=== PATIENT | male | born 1990 | race Caucasian/White ===

== ENCOUNTER → 2021-10-09 09:58 | Outpatient (CLI) | payer BC, SELFPAY ==
--- NOTE | 2021-10-10 12:10 | PC.NURSE ---
notified pt of positive COVID results at this time
--- NOTE | 2021-10-15 10:21 | PC.NURSE ---
Addendum entered by Lin Patel RN 10/15/21 10:21: Pharmacy notified of refusal Original Note: Pt states that he does not want to get the infusion when called to schedule. States he feels fine
== END ==
PROVIDERS: PCP Nurse Practitioner Family; Visit Provider Nurse Practitioner Family
DX: U07.1 COVID-19 (principal)
CPT/HCPCS: C9803; U0003; U0005

== ENCOUNTER 2022-02-27 13:10 | Emergency (ER) | payer BC, SELFPAY ==
[2022-02-27 13:27] VITALS: BP 151/99; PULSE 91; RESP 19; TEMP 36.7; O2SAT 98; BMI 51.2
--- NOTE | 2022-02-27 13:47 | HMH.EDUTC ---
[facility] [place] Disposition Clinical Impression: URI (upper respiratory infection) Qualifiers: URI type: unspecified URI Qualified Code(s): J06.9 - Acute upper respiratory infection, unspecified Disposition: Home, Self-Care Condition on Discharge: Good Instructions: Sore Throat, DI for Ear Pain-Adult, Azithromycin Additional Instructions: *Monitor Temp, Over the counter Motrin or Tylenol as directed/as needed Tylenol every 4 hours and Motrin every 6 hours (as long as your family doctor has told you that you can take it) for fever or pain. and straight to ER if unable to lower temp less than 101.0 after medication given *Warm salt water gargles may help to soothe the throat *Throat Lozenges *Warm fluids like tea with honey may help to soothe the throat *Sleep elevated *Humidifier/Vaporizer Your throat swab was sent for culture. Those results are typically sent to your primary care. Be sure to follow up in 2-3 days with your family doctor/primary care physician if no improvement so they can review those result and treat if necessary. If you don?t have a primary care doctor, I recommend you get one but in the mean time, you will have to return to a walk in clinic Follow up IMMEDIATELY for new or worsening symptoms or no Noticeable improvement over the next 48-72 hours. 911 for difficulty breathing or swallowing Prescriptions: Azithromycin [Z-Wild 250mg Tab] 250 mg PO DIRECTED #6 tab Transmission Status: Pending to [id number] Referrals: Kwaku Phan MD [Primary Care Provider] - As needed Forms: Work/School Release Time of Disposition: 14:44 Medical Decision Making - Kirill Inquiry Pt receiving controlled substance: No Kirill was queried for this patient: No Vital Signs: 02/27/22 13:27 Temperature 98.0 F Temperature Source Oral Pulse Rate [Right Radial] 91 H Respiratory Rate 19 Blood Pressure [Right Arm] 151/99 H Blood Pressure Mean [Right Arm] 116 Blood Pressure Source [Right Arm] Automatic Cuff Blood Pressure Position [Right Arm] Sitting 02 Sat by Pulse Oximetry 98 Oxygen Delivery Method Room Air - Lab Data Lab results reviewed: Yes: I reviewed the patient's lab results. Lab Results 02/27/22 13:59: Group A Strep Rapid Negative Orders (Tests/Meds): ORDERS Category Date Time Status Strep Screen Confirmation Stat Micro 02/27/22 13:59 Received Medical Decision Narrative: Patient states that he has taken azithromycin in the past without complications or reactions [facility] [place] HPI - General Stated complaint: rt ear pain, sore throat, cough, congestion Time Seen by Provider: 02/27/22 13:47 Mode of Arrival: Ambulatory Source of Information: Patient Limitations: No Limitations Description of Symptoms (Recalled from Triage Doc. by RN): C/O rt ear pain and sinus congestion since this morning HEENT Symptoms (Recalled from RN notes): Yes (Rt ear pain and sinus congestion) Resp Symptoms (Recalled from RN notes): No Skin Symptoms (Recalled from RN notes): No MS Symptoms (Recalled from RN notes): No Functional Status (Recalled from RN notes): n/a - History of Present Illness Provider Complaint: Patient states that he has been having sore scratchy throat, pain in his right ear and sinus congestion States that this morning he noticed looked like he may have blisters in the back of his throat so he came in to get it checked out - Related Data Previous Rx's Medication Instructions Recorded Azithromycin [Z-Wild 250mg Tab] 250 mg PO DIRECTED #6 tab 02/27/22 Allergies Allergy/AdvReac Type Severity Reaction Status Date / Time Penicillins Allergy Verified 02/27/22 13:29 - Worker's Comp Is this a Worker's Comp case?: No [facility] History - Hepatitis A Screen Drug use history?: No High risk sexual behaviors?: No History of sexually transmitted infection?: No Currently employed?: No Childcare worker?: No Do you have indoor plumbing?: Yes Do you have electricity?: Yes Attestat
[2022-02-27 14:21] LABS: Strep Scrn Group A (Rapid) Negative (Negative)
[2022-02-27 14:51] VITALS: BP 151/99; PULSE 91; RESP 19; TEMP 36.7; O2SAT 98
== END 2022-02-27 14:52 | disposition home or self-care (01) ==
PROVIDERS: Emergency Provider Nurse Practitioner; PCP Internal Medicine Adolescent Medicine
DX: J06.9 Acute upper respiratory infection, unspecified (principal)
CPT/HCPCS: 87430; 99212; G0463

== ENCOUNTER 2022-11-11 15:50 | Emergency (ER) | payer BC, SELFPAY ==
[2022-11-11 17:25] VITALS: BP 151/93; PULSE 86; RESP 18; TEMP 36.8; O2SAT 98; BMI 49.5
[2022-11-11 17:38] LABS: UTC Influenza A Antigen Positive (Negative)
[2022-11-11 17:39] LABS: UTC Influenza B Antigen Negative (Negative)
--- NOTE | 2022-11-11 18:14 | EXP.UTC ---
Discharge Plan Disposition Patient Disposition: Home, Self-Care Condition: Good Prescriptions Prescriptions: New oseltamivir [Tamiflu] 75 mg capsule 75 mg PO Q12H 5 Days Qty: 10 0RF No Action azithromycin 250 MG tablet 250 mg PO DIRECTED Qty: 6 0RF Rx Instructions: Take two (2) tablets on day #1, then one (1) tablet day #2 thru #5 Referrals Follow up/Referrals: Kwaku Phan MD [Primary Care Provider] - See instructions Activity Restrictions/Add. Instructions Additional Instructions/Restrictions: Start Tamiflu today if you are going to take it. Discussed risk and possible benefits. Lots of rest Increase Fluids water, Gatorade, powerade, pedialyte,if /toddler/child Alternate Tylenol and / or ibuprofen as discussed for fever, aches, chills Follow up IMMEDIATELY with your family doctor for new or worsening Symptoms OR no noticeable improvement over the next 48-72 hours, 911 for difficulty or breathing You or your child area contagious until no fever, aches, chills for 24 hours with medication for symptoms Help Prevent the spread of influenza: ?Wash your hands often. Use soap and water. Wash your hands after you use the bathroom, change a child's diapers, or sneeze. Wash your hands before you prepare or eat food. Use gel hand cleanser that has 60% alcohol, when soap and water are not available. Do not touch your eyes, nose, or mouth unless you have washed your hands first. Cover your mouth when you sneeze or cough. Cough into a tissue or the bend of your arm. If you use a tissue, throw it away immediately and wash your hands. Clean shared items with a germ-killing ultrasonic cleaner. Clean table surfaces, doorknobs, and light switches. Do not share towels, silverware, and dishes with people who are sick. Wash bed sheets, towels, silverware, and dishes with soap and water. Wear a mask over your mouth and nose if you are sick. The face mask may help protect others from becoming infected with the flu. Wear the mask when in common areas of your home or if you seek care with a healthcare provider. Stay away from others if you are sick. Stay at home until 24 hours after your fever and symptoms are gone. Clinical Impressions Clinical Impression: Influenza A Stand Alone Forms Stand Alone Forms: Work/School Release Instructions Patient Instructions: DI for Influenza -- Adult, Influenza, Oseltamivir Discharge ED Provider: Jennifer Liang [facility] [place] General Stated complaint: BODY ACHES, DIARRHEA, CARRANZA Mode of Arrival: Ambulatory Source of Information: Patient Limitations: No Limitations Time Seen by Provider: 11/11/22 18:14 Description of Symptoms (Recalled from Triage Doc. by RN): PATIENT C/O FEVER, BODY ACHES, HEADACHE AND DIARRHEA SINCE THIS MORNING HEENT Symptoms (Recalled from RN notes): Yes Resp Symptoms (Recalled from RN notes): No Skin Symptoms (Recalled from RN notes): No MS Symptoms (Recalled from RN notes): No Functional Status (Recalled from RN notes): WNL History of Present Illness Provider Complaint: Patient states that he started feeling bad this morning States that he has been having fever, chills, body aches, and diarrhea States that this evening he was still feeling achy all over so he came in Related Data Previous Rx's Medication Instructions Recorded azithromycin 250 mg tablet 250 mg PO DIRECTED #6 tabs 02/27/22 oseltamivir 75 mg capsule (Tamiflu) 75 mg PO Q12H 5 days #10 caps 11/11/22 Allergies Allergy/AdvReac Type Severity Reaction Status Date / Time Penicillins Allergy Verified 02/27/22 13:29 Worker's Comp Is this a Worker's Comp case?: No [facility] Disclaimer: The information contained in this section may have been updated after the patient was seen, as this information can be updated by other users. [employer]
[2022-11-11 18:26] VITALS: BP 151/93; PULSE 86; RESP 18; TEMP 36.8; O2SAT 98
== END 2022-11-11 18:34 | disposition home or self-care (01) ==
PROVIDERS: Emergency Provider Nurse Practitioner; PCP Internal Medicine Adolescent Medicine
DX: J10.1 Influenza due to other identified influenza virus with other respiratory manifestations (principal)
CPT/HCPCS: 87804; 99212; G0463

== ENCOUNTER 2023-07-06 12:08 | Emergency (ER) | payer BC, SELFPAY ==
--- NOTE | 2023-07-06 12:08 | ECG_ITS ---
APPROVED REPORT Exam: Resting ECG HR:86 bpm ECG Measurements Heart Rate 86 AXES VT 180 P 61 QRSd 105 QRS 12 QT 363 T 31 QTc 407 Conclusion SINUS RHYTHM Late R wave progression ABNORMAL ECG UNCONFIRMED REPORT Electronically signed by : Kwaku Phan MD 07/08/2023 17:24:41
[2023-07-06 12:10] VITALS: BP 176/104; PULSE 94; RESP 18; TEMP 36.8; O2SAT 97; BMI 47.5
[2023-07-06 12:20] VITALS: BP 153/91; PULSE 84; O2SAT 97
[2023-07-06 12:30] VITALS: BP 146/87; PULSE 82; O2SAT 95
--- NOTE | 2023-07-06 12:30 | XR_ITS ---
PROCEDURE INFORMATION: Exam: XR Chest Exam date and time: 07/06/2023 12:47 PM Age: 33 years old Clinical indication: Dyspnea TECHNIQUE: Imaging protocol: Radiologic exam of the chest. Views: 1 view. COMPARISON: No relevant prior studies available. FINDINGS: Lungs: Unremarkable. No consolidation. Pleural spaces: Unremarkable. No pleural effusion. No pneumothorax. Heart/Mediastinum: Unremarkable. No cardiomegaly. Bones/joints: Unremarkable. IMPRESSION: No acute findings.
[2023-07-06 12:36] LABS: Chloride 93 mmol/L (98-107); Sodium 134 mmol/L (136-145)
[2023-07-06 12:37] LABS: Basophils # 0.1 K/mm3 (0-0.2); Basophils % 1.3 % (0.1-2.0); Eosinophils % 0.9 % (0.1-12.0); Hematocrit 46.4 % (42.0-52.0); Hemoglobin 15.7 g/dL (14.1-18.0); Lymphocytes # 1.5 K/mm3 (0.7-4.5); Lymphocytes % 29.3 % (10-50); Mean Corpuscular HGB Conc 33.9 g/dL (31.8-35.4); Mean Corpuscular Hemoglobin 28.9 pg (27.0-31.2); Mean Corpuscular Volume 85.3 fl (80-94); Mean Platelet Volume 8.1 fl (7.4-10.4); Monocytes # 0.5 K/mm3 (0.1-1.0); Monocytes % 9.9 % (1.7-9.3); Neutrophils # 3.1 K/mm3 (1.8-7.8); Neutrophils % 58.7 % (37.0-80.0); Platelet Count 242 K/mm3 (142-424); Potassium 3.9 mmoL/L (3.5-5.1); Red Blood Count 5.44 M/mm3 (4.60-6.20); Red Cell Distribution Width 13.6 % (11.5-17.5); White Blood Count 5.2 K/mm3 (4.8-10.8)
[2023-07-06 12:39] LABS: Alanine Aminotransferase 59 U/L (12-78); Albumin Level 3.9 g/dl (3.5-5.0); Alkaline Phosphatase 70 U/L (38-126); Anion Gap 14.9 mEq/L (5-15); Aspartate Amino Transferase 43 U/L (17-59); Bilirubin,Total 0.4 mg/dl (0.2-1.3); Blood Urea Nitrogen 8 mg/dl (9-20); Calcium 9.2 mg/dl (8.4-10.2); Carbon Dioxide 30 mmol/L (22.0-30.0); Creatinine Clearance Estimated 168 mL/min (50-200); Estimated Glomerular Filt Rate 132 ml/min (>60); GFR (African American) 159 ML/MIN (>60); Globulin 3.8 g/dL (1.3-3.2); Glucose 285 mg/dl (74-100); Total Protein,Serum 7.7 g/dl (6.3-8.2)
--- NOTE | 2023-07-06 12:45 | HMH.EDGENADL ---
Discharge Plan Disposition Patient Disposition: Home, Self-Care Prescriptions Prescriptions: No Action azithromycin 250 MG tablet 250 mg PO DIRECTED Qty: 6 0RF Rx Instructions: Take two (2) tablets on day #1, then one (1) tablet day #2 thru #5 oseltamivir [Tamiflu] 75 mg capsule 75 mg PO Q12H 5 Days Qty: 10 0RF Referrals Follow up/Referrals: Provider,Referral, MD [Primary Care Provider] - See instructions Activity Restrictions/Add. Instructions Additional Instructions/Restrictions: Please follow-up with primary care doctor regarding your hyperglycemia. Your blood sugar today was 285. In the appropriate clinical setting this could be diagnostic for diabetes. I am not making this formal diagnosis at this point but she need to discuss this further with your primary care physician. Regarding her chest pain no acute cardiopulmonary emergency was identified today and you may discuss this further with your primary care physician as well. Return with any worsening symptoms. Clinical Impressions Clinical Impression: Atypical chest pain, Hyperglycemia, COVID-19 Discharge ED Provider: Piyush Feliz General Adult HPI General Chief complaint: Chest Pain Stated complaint: chest pain Time Seen by Provider: 07/06/23 12:27 Mode of Arrival: Ambulatory Limitations: No Limitations Description of Symptoms (Recalled from ER Triage Doc. by RN): PT C/O INTERMITTENT LEFT SIDED SHARP CHEST PAIN, BEGAN ABOUT 629. DIAGNOSED WITH COVID ON FRIDAY. COUGH X 2 DAYS, FEVER ON FRIDAY. DENIES SHORTNESS OF BREATH, N/V History of Present Illness HPI narrative: Patient is a 33-year-old male here with chest pain. Days leading up to he had some fevers chills cough was diagnosed with COVID on . He denies any significant worsening of those symptoms however this morning at 630 began having some very mild intermittent chest squeezing that would only last moments nothing persistent nothing exertional no diaphoresis or radiation associated with this not positional. Related Data Previous Rx's Medication Instructions Recorded azithromycin 250 mg tablet 250 mg PO DIRECTED #6 tabs 02/27/22 oseltamivir 75 mg capsule (Tamiflu) 75 mg PO Q12H 5 days #10 caps 11/11/22 Allergies Allergy/AdvReac Type Severity Reaction Status Date / Time Penicillins Allergy Verified 02/27/22 13:29 [facility] Disclaimer: The information contained in this section may have been updated after the patient was seen, as this information can be updated by other users. Medical History (Updated 07/06/23 @ 13:27 by Piyush Feliz MD) Kidney stone Liver cancer Surgical History (Updated 11/11/22 @ 17:43 by Shadia Hoyt RN) History of tonsillectomy Social History (Updated 11/11/22 @ 18:17 by Jennifer Liang APRN) Smoking Status: Never smoker alcohol intake: never current occupational status: employed Travel in the last 8 weeks: None ROS Obtained: Yes All systems reviewed & no additional complaints except as documented Physical Exam General General appearance: alert and in no apparent distress Respiratory Respiratory exam: Present normal lung sounds bilaterally and other (Pulse ox normal on room air); Absent respiratory distress, wheezes, stridor or accessory muscle use Cardiovascular Cardiovascular exam: Present regular rate; Absent tachycardia Neurological Exam Neurological exam: Present alert and oriented X3 Medical Decision Making Kirill Inquiry Pt receiving controlled substance: No Vital Signs: 07/06/23 12:10 07/06/23 12:20 07/06/23 12:30 Temperature 98.3 F Temperature Source Oral Pulse Rate 84 82 Pulse Rate [Apical] 94 H Respiratory Rate 18 Blood Pressure 153/91 H 146/87 H Blood Pressure [Right Arm] 176/104 H Blood Pressure Mean 111 105 Blood Pressure Mean [Right Arm] 128 Blood Pressure Source [Right Arm] Automatic Cuff Blood Pressure Position [Right Arm] Sitting 02 Sat
[2023-07-06 12:53] LABS: Troponin I < 0.01 ng/ml (0.00-0.034)
[2023-07-06 13:01] VITALS: BP 126/80; PULSE 78; RESP 27; O2SAT 95
[2023-07-06 13:40] VITALS: BP 126/80; PULSE 78; RESP 20; TEMP 36.8; O2SAT 95
== END 2023-07-06 13:40 | disposition home or self-care (01) ==
PROVIDERS: Emergency Provider Student in an Organized Health Care Education/Training Program
DX: U07.1 COVID-19 (principal); R07.9 Chest pain, unspecified; R73.9 Hyperglycemia, unspecified
CPT/HCPCS: 71045; 80053; 84484; 85025; 93005; 99285

== ENCOUNTER → 2023-07-24 23:36 | Outpatient (CLI) | payer BC, SELFPAY ==
[2023-07-24 18:27] LABS: Basophils # 0.1 K/mm3 (0-0.2); Basophils % 0.9 % (0.1-2.0); Eosinophils # 0.1 K/mm3 (0.0-0.4); Hematocrit 45.2 % (42.0-52.0); Lymphocytes # 1.7 K/mm3 (0.7-4.5); Lymphocytes % 20.9 % (10-50); Mean Corpuscular HGB Conc 33.1 g/dL (31.8-35.4); Mean Corpuscular Hemoglobin 28.9 pg (27.0-31.2); Mean Corpuscular Volume 87.3 fl (80-94); Mean Platelet Volume 10.2 fl (7.4-10.4); Monocytes # 0.5 K/mm3 (0.1-1.0); Monocytes % 5.8 % (1.7-9.3); Neutrophils # 5.8 K/mm3 (1.8-7.8); Neutrophils % 71.5 % (37.0-80.0); Platelet Count 347 K/mm3 (142-424); Red Blood Count 5.18 M/mm3 (4.60-6.20); Red Cell Distribution Width 14.1 % (11.5-17.5); White Blood Count 8.2 K/mm3 (4.8-10.8)
[2023-07-24 19:21] LABS: Chloride 99 mmol/L (98-107); Potassium 4.3 mmoL/L (3.5-5.1); Sodium 137 mmol/L (136-145)
[2023-07-24 19:24] LABS: Alanine Aminotransferase 37 U/L (12-78); Albumin Level 3.7 g/dl (3.5-5.0); Albumin/Globulin Ratio 1.2 (1.1-1.8); Alkaline Phosphatase 77 U/L (38-126); Anion Gap 13.3 mEq/L (5-15); Aspartate Amino Transferase 26 U/L (17-59); Bilirubin,Total 0.9 mg/dl (0.2-1.3); Blood Urea Nitrogen 12 mg/dl (9-20); Carbon Dioxide 29 mmol/L (22.0-30.0); Cholesterol 121 mg/dl (140-200); Estimated Glomerular Filt Rate 113 ml/min (>60); GFR (African American) 136 ML/MIN (>60); Globulin 3.1 g/dL (1.3-3.2); Total Protein,Serum 6.8 g/dl (6.3-8.2); Triglycerides 250 mg/dl (30-150); VLDL Cholesterol 50 mg/dL (0-40)
[2023-07-24 19:25] LABS: Calcium 9.3 mg/dl (8.4-10.2); Chol/HDL Ratio 5.5 (1-3.5); Glucose 192 mg/dl (74-100); HDL Cholesterol 22 mg/dl (40-60)
[2023-07-24 19:36] LABS: Direct LDL Cholesterol 58.17 mg/dL (100-129)
[2023-07-24 20:14] LABS: 25-OH Vitamin D, Total < 12.8 ng/mL (30-100)
[2023-07-24 20:27] LABS: Thyroid Stimulating Hormone 1.91 uIU/mL (0.465-4.68)
== END ==
LOC: LAB.DROPOF 23:36
PROVIDERS: PCP Student in an Organized Health Care Education/Training Program; Visit Provider Student in an Organized Health Care Education/Training Program
DX: R73.9 Hyperglycemia, unspecified (principal); R53.83 Other fatigue; Z68.42 Body mass index [BMI] 45.0-49.9, adult
CPT/HCPCS: 80053; 80061; 82306; 83036; 84443; 85025

== ENCOUNTER → 2023-07-31 23:12 | Outpatient (CLI) | payer BC, SELFPAY ==
[2023-07-31 18:49] LABS: Creatinine,Urine Random 212 mg/dL (Not Estab.)
[2023-07-31 18:53] LABS: Microalbumin/Creatinine Ratio 82.2
== END ==
PROVIDERS: PCP Student in an Organized Health Care Education/Training Program; Visit Provider Student in an Organized Health Care Education/Training Program
DX: E11.9 Type 2 diabetes mellitus without complications (principal)
CPT/HCPCS: 82043; 82570

== ENCOUNTER → 2023-08-14 11:40 | Outpatient (CLI) | payer BC, SELFPAY ==
[2023-08-14 12:22] VITALS: BMI 47.9
== END ==
LOC: DIETICIAN 11:40
PROVIDERS: PCP Student in an Organized Health Care Education/Training Program; Visit Provider Student in an Organized Health Care Education/Training Program
DX: Z71.3 Dietary counseling and surveillance (principal); E11.9 Type 2 diabetes mellitus without complications
CPT/HCPCS: 97802

== ENCOUNTER → 2023-08-19 14:50 | Outpatient (CLI) | payer BC, SELFPAY ==
--- NOTE | 2023-08-19 14:53 | US_ITS ---
FINAL REPORT TECHNIQUE: Ultrasound images of the kidneys and bladder were obtained. CLINICAL HISTORY: .proteinuria COMPARISON: None FINDINGS: The right kidney measures 12.6 cm in length. It is normal in echogenicity. There is no hydronephrosis. The left kidney measures 12.6 cm in length. It is normal in echogenicity. There is no hydronephrosis. Note is made of generalized increase in liver echogenicity compatible with fatty infiltration of the liver. The spleen is at the upper limits of normal in size measuring 12.95 cm in length. IMPRESSION: No evidence of hydronephrosis or renal mass.. Reviewed, Interpreted and Dictated by Asad Farley III, MD Transcribed by Leti Medel Authenticated and [facility]
== END ==
LOC: RAD 14:50
PROVIDERS: PCP Student in an Organized Health Care Education/Training Program; Visit Provider Student in an Organized Health Care Education/Training Program
DX: E11.29 Type 2 diabetes mellitus with other diabetic kidney complication (principal); R80.9 Proteinuria, unspecified
CPT/HCPCS: 76770

== ENCOUNTER → 2023-08-20 13:49 | Outpatient (CLI) | payer BC, SELFPAY | LOC: SL 13:50 | PROVIDERS: PCP Student in an Organized Health Care Education/Training Program; Visit Provider Student in an Organized Health Care Education/Training Program | DX: G47.30 Sleep apnea, unspecified (principal); I10 Essential (primary) hypertension; E66.9 Obesity, unspecified; Z68.42 Body mass index [BMI] 45.0-49.9, adult | CPT/HCPCS: G0399 ==

== ENCOUNTER 2023-11-27 19:40 | Outpatient (CLI) | payer BC, SELFPAY ==
[2023-11-27 19:49] LABS: Basophils # 0.1 K/mm3 (0-0.2); Basophils % 0.9 % (0.1-2.0); Eosinophils # 0.1 K/mm3 (0.0-0.4); Eosinophils % 1.1 % (0.1-12.0); Hematocrit 43.5 % (42.0-52.0); Hemoglobin 16.6 g/dL (14.1-18.0); Lymphocytes % 21.1 % (10-50); Mean Corpuscular HGB Conc 38.1 g/dL (31.8-35.4); Mean Corpuscular Hemoglobin 33.4 pg (27.0-31.2); Mean Corpuscular Volume 87.8 fl (80-94); Mean Platelet Volume 9.6 fl (7.4-10.4); Monocytes # 0.6 K/mm3 (0.1-1.0); Monocytes % 5.8 % (1.7-9.3); Neutrophils # 6.8 K/mm3 (1.8-7.8); Neutrophils % 71.1 % (37.0-80.0); Platelet Count 295 K/mm3 (142-424); Red Blood Count 4.96 M/mm3 (4.60-6.20); Red Cell Distribution Width 14.1 % (11.5-17.5); White Blood Count 9.6 K/mm3 (4.8-10.8)
[2023-11-27 20:12] LABS: 25-OH Vitamin D, Total 15.9 ng/mL (30-100)
[2023-11-27 20:16] LABS: Alanine Aminotransferase 33 U/L (12-78); Albumin Level 4.3 g/dl (3.5-5.0); Albumin/Globulin Ratio 1.3 (1.1-1.8); Alkaline Phosphatase 64 U/L (38-126); Anion Gap 14.4 mEq/L (5-15); Aspartate Amino Transferase 28 U/L (17-59); Bilirubin,Total 0.5 mg/dl (0.2-1.3); Blood Urea Nitrogen 19 mg/dl (9-20); Carbon Dioxide 27 mmol/L (22.0-30.0); Chloride 99 mmol/L (98-107); Chol/HDL Ratio 5.9 (1-3.5); Cholesterol 135 mg/dl (140-200); Estimated Glomerular Filt Rate 98 ml/min (>60); GFR (African American) 119 ML/MIN (>60); Globulin 3.3 g/dL (1.3-3.2); Glucose 126 mg/dl (74-100); HDL Cholesterol 23 mg/dl (40-60); Potassium 4.4 mmoL/L (3.5-5.1); Sodium 136 mmol/L (136-145); Total Protein,Serum 7.6 g/dl (6.3-8.2); Triglycerides 195 mg/dl (30-150); VLDL Cholesterol 39 mg/dL (0-40)
[2023-11-27 20:27] LABS: Direct LDL Cholesterol 80.34 mg/dL (100-129)
[2023-11-27 21:11] LABS: Microalbumin/Creatinine Ratio 38.3
[2023-11-27 21:15] LABS: Creatinine,Urine Random 102 mg/dL (Not Estab.)
[2023-11-27 21:19] LABS: Thyroid Stimulating Hormone 1.89 uIU/mL (0.465-4.68)
[2023-11-27 21:51] LABS: Hemoglobin A1C 6.5 % (4.0-6.0)
== END 2023-11-27 23:59 ==
LOC: LAB.DROPOF 19:40
PROVIDERS: PCP Student in an Organized Health Care Education/Training Program; Visit Provider Student in an Organized Health Care Education/Training Program
DX: E11.9 Type 2 diabetes mellitus without complications (principal); E55.9 Vitamin D deficiency, unspecified; E66.01 Morbid (severe) obesity due to excess calories; Z68.42 Body mass index [BMI] 45.0-49.9, adult; Z79.899 Other long term (current) drug therapy
CPT/HCPCS: 80053; 80061; 82043; 82306; 82570; 83036; 84443; 85025

== ENCOUNTER 2024-02-26 11:20 | Outpatient (CLI) | payer BC, SELFPAY ==
[2024-02-26 18:39] LABS: 25-OH Vitamin D, Total 23.9 ng/mL (30-100)
[2024-02-26 18:42] LABS: Hemoglobin A1C 6.7 % (4.0-6.0)
== END 2024-02-26 23:59 | disposition home or self-care (01) ==
LOC: LAB.DROPOF 02-27 11:20
PROVIDERS: PCP Student in an Organized Health Care Education/Training Program; Visit Provider Student in an Organized Health Care Education/Training Program
DX: E55.9 Vitamin D deficiency, unspecified (principal); E11.9 Type 2 diabetes mellitus without complications
CPT/HCPCS: 82306; 83036

== ENCOUNTER 2024-06-17 09:17 | Outpatient (CLI) | payer BC, SELFPAY ==
[2024-06-17 19:26] LABS: Basophils # 0.1 K/mm3 (0-0.2); Basophils % 1.1 % (0.1-2.0); Eosinophils # 0.1 K/mm3 (0.0-0.4); Hematocrit 46.2 % (42.0-52.0); Hemoglobin 15.2 g/dL (14.1-18.0); Lymphocytes # 2.1 K/mm3 (0.7-4.5); Lymphocytes % 24.6 % (10-50); Mean Corpuscular Hemoglobin 30.1 pg (27.0-31.2); Mean Corpuscular Volume 91.2 fl (80-94); Mean Platelet Volume 9.3 fl (7.4-10.4); Monocytes # 0.5 K/mm3 (0.1-1.0); Monocytes % 5.9 % (1.7-9.3); Neutrophils # 5.7 K/mm3 (1.8-7.8); Neutrophils % 67.3 % (37.0-80.0); Platelet Count 311 K/mm3 (142-424); Red Blood Count 5.06 M/mm3 (4.60-6.20); Red Cell Distribution Width 13.9 % (11.5-17.5); White Blood Count 8.5 K/mm3 (4.8-10.8)
[2024-06-17 19:41] LABS: Alanine Aminotransferase 40 U/L (12-78); Albumin/Globulin Ratio 1.2 (1.1-1.8); Alkaline Phosphatase 50 U/L (38-126); Anion Gap 12.4 mEq/L (5-15); Aspartate Amino Transferase 34 U/L (17-59); Bilirubin,Total 0.5 mg/dl (0.2-1.3); Blood Urea Nitrogen 22 mg/dl (9-20); Calcium 9.1 mg/dl (8.4-10.2); Carbon Dioxide 27 mmol/L (22.0-30.0); Chloride 102 mmol/L (98-107); Chol/HDL Ratio 5.3 (1-3.5); Cholesterol 137 mg/dl (140-200); Estimated Glomerular Filt Rate 112 ml/min (>60); GFR (African American) 136 ML/MIN (>60); Globulin 3.3 g/dL (1.3-3.2); Glucose 113 mg/dl (74-100); HDL Cholesterol 26 mg/dl (40-60); Potassium 4.4 mmoL/L (3.5-5.1); Sodium 137 mmol/L (136-145); Total Protein,Serum 7.3 g/dl (6.3-8.2); Triglycerides 237 mg/dl (30-150); VLDL Cholesterol 47 mg/dL (0-40)
[2024-06-17 19:52] LABS: Direct LDL Cholesterol 65.42 mg/dL (100-129)
[2024-06-17 19:55] LABS: 25-OH Vitamin D, Total 26.9 ng/mL (30-100)
[2024-06-17 20:36] LABS: Microalbumin/Creatinine Ratio 25.1
[2024-06-17 20:40] LABS: Creatinine,Urine Random 132 mg/dL (Not Estab.); Hemoglobin A1C 6.4 % (4.0-6.0)
== END 2024-06-17 23:59 | disposition home or self-care (01) ==
LOC: LAB.DROPOF 06-18 09:18
PROVIDERS: PCP Student in an Organized Health Care Education/Training Program; Visit Provider Student in an Organized Health Care Education/Training Program
DX: E55.9 Vitamin D deficiency, unspecified (principal); E11.9 Type 2 diabetes mellitus without complications; Z79.84 Long term (current) use of oral hypoglycemic drugs
CPT/HCPCS: 80053; 80061; 82043; 82306; 82570; 83036; 85025

== ENCOUNTER 2024-08-28 01:47 | Emergency (ER) | payer BC, SELFPAY ==
[2024-08-28 01:48] VITALS: BP 152/91; PULSE 90; RESP 18; TEMP 36.5; O2SAT 99; BMI 45.1
--- NOTE | 2024-08-28 01:49 | ECG_ITS ---
APPROVED REPORT Exam: Resting ECG HR:88 bpm ECG Measurements Heart Rate 88 AXES IN 174 P 60 QRSd 106 QRS 18 QT 387 T 39 QTc 433 Conclusion SINUS RHYTHM LOW QRS VOLTAGE IN PRECORDIAL LEADS [QRS DEFLECTION < 1.0 mV IN CHEST LEADS] POSSIBLE ANTERIOR MYOCARDIAL INFARCTION , PROBABLY OLD [30 ms Q WAVE IN V3/V4, OR R < 0.2 mV IN V4] MODERATE T-WAVE ABNORMALITY, CONSIDER INFERIOR ISCHEMIA [-0.1+ mV T-WAVE IN II/aVF] ABNORMAL ECG UNCONFIRMED REPORT Electronically signed by : BAUTISTA PATTERSON, 08/29/2024 06:06:16
--- NOTE | 2024-08-28 01:56 | ED_ITS ---
Discharge Plan Disposition Patient Disposition: Home, Self-Care Prescriptions Prescriptions: No Action lisinopril 20 mg tablet 20 mg PO DAILY Qty: 90 3RF (DME) lancets 30 gauge misc See Rx Instructions .Route Qty: 100 3RF Rx Instructions: As directed, Monitor BG TID Jardiance 25 mg tablet 25 mg PO DAILY Qty: 30 2RF cholecalciferol (vitamin D3) 1,250 mcg (50,000 unit) capsule 1,250 mcg PO WEEKLY Qty: 14 0RF glimepiride 1 mg tablet 1 mg PO DAILY Qty: 30 2RF Referrals Follow up/Referrals: Provider,Referral, MD [Referring] - See instructions Activity Restrictions/Add. Instructions Additional Instructions/Restrictions: Please follow-up with your primary care provider. Please return to the emergency department if you develop any new or worsening symptoms or become concerned for your health. Clinical Impressions Clinical Impression: Chest pressure Print Language Print Language: Latvian Discharge ED Provider: Jona Garcia Adult HPI General Chief complaint: Chest Pain Stated complaint: chest pain Time Seen by Provider: 08/28/24 01:50 History of Present Illness HPI narrative: 34-year-old male with history of hypertension and obesity presents for chest tightness. He reports that started after he ate this evening and then he woke up with persistent symptoms and could not go back to sleep. He denies recent fever or illness, denies any shortness of breath, no history of blood clots or recent immobilization. Related Data Previous Rx's ?Medication ?Instructions ?Recorded lancets 30 gauge #100 ea 07/25/23 lisinopril 20 mg tablet 20 mg PO DAILY #90 tabs 08/28/23 empagliflozin 25 mg tablet 25 mg PO DAILY #30 tabs 12/03/23 (Jardiance) cholecalciferol (vitamin D3) 1,250 1,250 mcg PO WEEKLY #14 caps 02/26/24 mcg (50,000 unit) capsule glimepiride 1 mg tablet 1 mg PO DAILY #30 tabs 06/18/24 Allergies Allergy/AdvReac Type Severity Reaction Status Date / Time Penicillins Allergy Verified 06/17/24 08:20 [facility] Disclaimer: The information contained in this section may have been updated after the patient was seen, as this information can be updated by other users. Medical History Hyperglycemia Liver cancer Hepatoblastoma - dx 1997 Kidney stone Surgical History History of tonsillectomy Family History Mother Diabetes Social History Smoking Status: Unknown if ever smoked alcohol intake: current alcohol intake frequency: holidays/special occasions only substance use type: denies use current occupational status: employed Travel in the last 8 weeks: None household members: spouse housing: house marital status: Other Medical History Have you received the Pneumonia Vaccine: No ROS Obtained: Yes All systems reviewed & no additional complaints except as documented Physical Exam General General appearance: alert and in no apparent distress Head Head exam: atraumatic and normocephalic Eye Eye exam: Present normal appearance, PERRL and EOMI ENT ENT exam: Present normal oropharynx and normal external ear exam Neck Neck exam: Present normal inspection and full ROM Chest Chest inspection: Present normal inspection and symmetric chest wall rise; Absent tenderness Respiratory Respiratory exam: Present normal lung sounds bilaterally; Absent respiratory distress Cardiovascular Cardiovascular exam: Present regular rate and normal rhythm Abdominal Exam Abdominal exam: Present soft; Absent distention, tenderness or guarding Extremities Exam Extremities exam: Present normal inspection; Absent edema or joint swelling Back Exam Back exam: Present normal inspection; Absent tenderness Neurological Exam Neurological exam: Present alert and oriented X3; Absent motor sensory deficit Psychiatric Psychiatric exam: Present normal affect and normal mood Skin Skin exam: Present warm, dry and normal color Lymphatic Lymphatic Findings: no adenopathy Medical Decision Making Medical Records Medical records reviewed: Yes I reviewed the patient's medical records. Screening: Per USPSTF and CDC recommendations, given the prevalence of disease in our region, it is our hospital?s policy to screen for HIV and viral Hepatitis for all patients aged 18 and over and those with ongoing risk factors. Kirill Inquiry Pt receiving controlled substance: No Kirill was queried for this patient: No Vital Signs: 08/28/24 01:48 08/28/24 02:00 08/28/24 02:30 Temperature 97.7 F Temperature Source Oral Pulse Rate 85 67 Pulse Rate [Left] 90 Respiratory Rate 18 Blood Pressure 150/84 H 122/77 Blood Pressure [Right Arm] 152/91 H Blood Pressure Mean 99 92 Blood Pressure Mean [Right Arm] 111 02 Sat by Pulse Oximetry 99 97 97 Oxygen Delivery Method Room Air 08/28/24 03:00 Temperature Temperature Source Pulse Rate 69 Pulse Rate [Left] Respiratory Rate Blood Pressure 121/71 Blood Pressure [Right Arm] Blood Pressure Mean 85 Blood Pressure Mean [Right Arm] 02 Sat by Pulse Oximetry 95 Oxygen Delivery Method Lab Data Lab results reviewed: Yes I reviewed the patient's lab results. Lab Results 08/28/24 01:53: WBC 9.8, RBC 5.13, Hgb 15.3, Hct 44.4, MCV 86.5, MCH 29.8, MCHC 34.4, RDW 13.7, Plt Count 285, MPV 7.8, Neut % (Auto) 68.1, Lymph % (Auto) 23.6, Foard % (Auto) 6.1, Eos % (Auto) 1.1, Baso % (Auto) 1.0, Neut # (Auto) 6.7, Lymph # (Auto) 2.3, Foard # (Auto) 0.6, Eos # (Auto) 0.1, Baso # (Auto) 0.1, Sodium 138, Potassium 3.5, Chloride 103, Carbon Dioxide 30, Anion Gap 8.5, BUN 17, Creatinine 0.80, Estimated Creat Clear 146, Estimated GFR 112, Est GFR ( Amer) 136, Glucose 171 H, Calcium 9.3, Total Bilirubin 0.6, AST 38, ALT 35, Alkaline Phosphatase 42, Troponin I < 0.01, Total Protein 7.3, Albumin 4.2, Globulin 3.1, Albumin/Globulin Ratio 1.4 08/28/24 03:31: Troponin I < 0.01 08/28/24 01:53 08/28/24 01:53 Orders (Tests/Meds): ED MEDICATIONS Discontinued Medications Generic Name Dose Route Start Last Admin Trade Name Freq PRN Reason Stop Dose Admin Acetaminophen 1,000 mg 08/28/24 02:15 08/28/24 02:20 Acetaminophen 500mg Tab PO 08/28/24 02:16 1,000 mg ONCE ONE Administration Belladonna Alkaloids 60 ml 08/28/24 02:15 08/28/24 02:20 Belladonna Alkaloids 60 Ml Ml PO 08/28/24 02:16 60 ml ONCE ONE Administration Ibuprofen 600 mg 08/28/24 02:15 08/28/24 02:20 Ibuprofen 600 Mg Tablet PO 08/28/24 02:16 600 mg ONCE ONE Administration ORDERS Category Date Time Status CXR --portable [XR chest portable] Stat Exams 08/28/24 02:15 Taken CBC w/Auto Diff [Complete Blood Count Auto Diff] Stat Lab 08/28/24 01:53 Completed CMP [Comprehensive Metabolic Panel] Stat Lab 08/28/24 01:53 Completed HIV (1&2) Antibody Rapid Stat Lab 08/28/24 01:53 Received Hep C Ab with Reflex to RNA Stat Lab 08/28/24 01:53 Received Troponin I Q3H Lab 08/28/24 01:53 Completed Troponin I Q3H Lab 08/28/24 03:31 Completed ECG Data Tracing #1: I reviewed this ECG and interpreted as documented below: Sinus rhythm, rate of 88, biphasic T waves in the inferior leads. ECG initial impression date: 08/28/24 ECG initial impression time: 01:50 HEART Score History (anamnesis): Slightly suspicious ECG: Non-specific disturbance Age: <45 years Risk factors: 1-2 risk factors Troponin: </= normal limit HEART Score: 2 Medical Decision Narrative: 34-year-old male with history of obesity and hypertension presents for chest tightness that started after eating and has been present for several hours. History was obtained via interactive discussion with patient, chart review. On arrival, patient is [afebrile, hemodynamically stable, satting appropriately, alert, oriented x4, GCS 15], moving all extremities spontaneously. Full physical exam performed and significant for no significant physical exam abnormalities. Differential includes but is not limited to GERD, musculoskeletal chest pain, ACS, PE, pleurisy. Patient was given Tylenol, ibuprofen, GI cocktail for symptomatic management and correction of underlying abnormalities. Workup initiated including CBC CMP troponin EKG chest x-ray. Aspirin was not given as there is no significant concern for ACS at this time. D-dimer not obtained as patient is PERC negative. On re-evaluation, patient [remains afebrile, HD stable.] Patient reports significant symptomatic improvement. Laboratory workup independently interpreted by me and significant for no significant leukocytosis, normal renal function, initial troponin negative. Patient was placed in ED observation status for serial troponins and cardiac monitoring Imaging independently interpreted by me and significant for clear lungs bilaterally. See radiology read for full review of final results. On reassessment, repeat troponin negative. Given this patient was deemed appropriate for discharge with outpatient management. Given patient history, exam and workup, patient's presentation most likely represents noncardiac chest pain. These findings were communicated patient and he was discharged in stable condition with return precautions. Procedures Risk/Benefits of Procedure(s) Were Explained: Yes Critical Care Critical Care Time Critical Care Time: No
[2024-08-28 02:00] VITALS: BP 150/84; PULSE 85; O2SAT 97
--- NOTE | 2024-08-28 02:15 | XR_ITS ---
PROCEDURE INFORMATION: Exam: XR Chest Exam date and time: 08/28/2024 2:48 AM Age: 34 years old Clinical indication: Pain; Additional info: Cp TECHNIQUE: Imaging protocol: Radiologic exam of the chest. Views: 1 view. COMPARISON: CR XR CHEST PORTABLE 07/06/2023 12:47 PM FINDINGS: Lungs: Vascular congestion Pleural spaces: Unremarkable. No pleural effusion. No pneumothorax. Heart/Mediastinum: Cardiomegaly Bones/joints: Unremarkable. IMPRESSION: Cardiomegaly and vascular congestion
[2024-08-28] MEDS: ACETAMINOPHEN 500MG TAB 1000 MG PO (02:20)
[2024-08-28] MEDS: BELLADONNA ALKALOIDS 60 ML ML PO (02:20)
[2024-08-28] MEDS: IBUPROFEN 600 MG TABLET PO (02:20)
[2024-08-28 02:23] LABS: Basophils # 0.1 K/mm3 (0-0.2); Eosinophils # 0.1 K/mm3 (0.0-0.4); Eosinophils % 1.1 % (0.1-12.0); Hematocrit 44.4 % (42.0-52.0); Hemoglobin 15.3 g/dL (14.1-18.0); Lymphocytes # 2.3 K/mm3 (0.7-4.5); Lymphocytes % 23.6 % (10-50); Mean Corpuscular HGB Conc 34.4 g/dL (31.8-35.4); Mean Corpuscular Hemoglobin 29.8 pg (27.0-31.2); Mean Corpuscular Volume 86.5 fl (80-94); Mean Platelet Volume 7.8 fl (7.4-10.4); Monocytes # 0.6 K/mm3 (0.1-1.0); Monocytes % 6.1 % (1.7-9.3); Neutrophils # 6.7 K/mm3 (1.8-7.8); Neutrophils % 68.1 % (37.0-80.0); Platelet Count 285 K/mm3 (142-424); Red Blood Count 5.13 M/mm3 (4.60-6.20); Red Cell Distribution Width 13.7 % (11.5-17.5); White Blood Count 9.8 K/mm3 (4.8-10.8)
[2024-08-28 02:27] LABS: Alanine Aminotransferase 35 U/L (12-78); Albumin Level 4.2 g/dl (3.5-5.0); Albumin/Globulin Ratio 1.4 (1.1-1.8); Alkaline Phosphatase 42 U/L (38-126); Anion Gap 8.5 mEq/L (5-15); Aspartate Amino Transferase 38 U/L (17-59); Bilirubin,Total 0.6 mg/dl (0.2-1.3); Blood Urea Nitrogen 17 mg/dl (9-20); Calcium 9.3 mg/dl (8.4-10.2); Carbon Dioxide 30 mmol/L (22.0-30.0); Chloride 103 mmol/L (98-107); Creatinine Clearance Estimated 146 mL/min (50-200); Estimated Glomerular Filt Rate 112 ml/min (>60); GFR (African American) 136 ML/MIN (>60); Globulin 3.1 g/dL (1.3-3.2); Glucose 171 mg/dl (74-100); Potassium 3.5 mmoL/L (3.5-5.1); Sodium 138 mmol/L (136-145); Total Protein,Serum 7.3 g/dl (6.3-8.2)
[2024-08-28 02:30] VITALS: BP 122/77; PULSE 67; O2SAT 97
[2024-08-28 02:42] LABS: Troponin I < 0.01 ng/ml (0.00-0.034)
[2024-08-28 03:00] VITALS: BP 121/71; PULSE 69; O2SAT 95
[2024-08-28 03:59] LABS: Troponin I < 0.01 ng/ml (0.00-0.034)
[2024-08-28 04:21] VITALS: BP 116/61; PULSE 72; RESP 20; TEMP 36.8; O2SAT 98
[2024-08-28 05:28] LABS: HIV (1&2) Antibody Rapid NONREACTIVE (NONREACTIVE)
[2024-08-29 08:29] LABS: HCV Ab Non Reactive (Non Reactive)
== END 2024-08-28 04:26 | disposition home or self-care (01) ==
PROVIDERS: Emergency Provider Emergency Medicine; PCP Student in an Organized Health Care Education/Training Program
DX: R07.89 Other chest pain (principal)
CPT/HCPCS: 71045; 80053; 84484; 85025; 86803; 87389; 93005; 99284

== ENCOUNTER 2024-09-16 08:49 | Outpatient (CLI) | payer BC, SELFPAY ==
[2024-09-16 18:42] LABS: 25-OH Vitamin D, Total 19.2 ng/mL (30-100)
[2024-09-16 18:51] LABS: Hemoglobin A1C 6.3 % (4.0-6.0)
== END 2024-09-16 23:59 | disposition home or self-care (01) ==
LOC: LAB.DROPOF 09-17 08:37
PROVIDERS: PCP Student in an Organized Health Care Education/Training Program; Visit Provider Student in an Organized Health Care Education/Training Program
DX: E11.9 Type 2 diabetes mellitus without complications (principal); E55.9 Vitamin D deficiency, unspecified; Z79.84 Long term (current) use of oral hypoglycemic drugs
CPT/HCPCS: 82306; 83036

== ENCOUNTER 2024-12-09 08:32 | Outpatient (CLI) | payer BC, SELFPAY ==
[2024-12-09 18:58] LABS: Chol/HDL Ratio 5.7 (1-3.5); Cholesterol 125 mg/dl (140-200); HDL Cholesterol 22 mg/dl (40-60); Triglycerides 231 mg/dl (30-150); VLDL Cholesterol 46 mg/dL (0-40)
[2024-12-09 19:09] LABS: Direct LDL Cholesterol 71.54 mg/dL (100-129)
== END 2024-12-09 23:59 | disposition home or self-care (01) ==
LOC: LAB.DROPOF 12-10 10:54
PROVIDERS: PCP Student in an Organized Health Care Education/Training Program; Visit Provider Student in an Organized Health Care Education/Training Program
DX: E11.9 Type 2 diabetes mellitus without complications (principal); Z79.84 Long term (current) use of oral hypoglycemic drugs
CPT/HCPCS: 80061; 83036